=== PATIENT | male | born 1980 | race American Indian/Alaskan Native ===

== ENCOUNTER 2020-12-27 15:46 | Emergency (ER) | payer SELFPAY ==
[2020-12-27 15:50] VITALS: BP 140/93
[2020-12-27] MEDS ORDERED: oxyCODONE /ACETAMINOPHEN 5-325MG TAB PO ONE (16:02)
[2020-12-27] MEDS ORDERED: DIPHtheria,PERTUSSIS(ACELL),TETANUS VACCINE/PF 0.5 ML VIAL IM ONE (16:02)
[2020-12-27] MEDS ORDERED: NEOMY 3.5 MG/BACIT 400 UNITS/POLY B 5000 UNITS/GM OINT PACKET TP ONE (16:42)
--- NOTE | 2020-12-27 16:42 | Emergency Department Report ---
- General Chief Complaint: Wound/Laceration Stated Complaint: LEFT FINGER LAC/WORK RELATED Time Seen by Provider: 12/27/20 16:02 Source: patient Mode of arrival: Ambulatory Limitations: No Limitations - History of Present Illness Initial Comments: pt is a 40 yo male who presents to the ED with c/o a laceration to the left middle finger and pointer finger that occurred just [employer]. 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 he denies any numbness or weakness. he is able to move the digits. no pmhx. no allergies to meds. unsure of last tetanus immunizations. - Related Data Previous Rx's Medication Instructions Recorded Last Taken Type HYDROcodone/APAP 5-325 [Marion 1 each PO Q6HR PRN #12 tablet 12/27/20 Unknown Rx 5/325] Ibuprofen [Motrin 600 MG tab] 600 mg PO Q8H PRN #20 tablet 12/27/20 Unknown Rx Neomycin/Bacitracin/Polymyxinb 1 applicatio TP BID #14 oint...g. 12/27/20 Unknown Rx [Triple Antibiotic Ointment] cephALEXin [Keflex] 500 mg PO QID 7 Days #28 cap 12/27/20 Unknown Rx Allergies Allergy/AdvReac Type Severity Reaction Status Date / Time No Known Allergies Allergy Unverified 12/27/20 15:46 ED Review of Systems ROS: Stated complaint: LEFT FINGER LAC/WORK RELATED Other details as noted in HPI Comment: All other systems reviewed and negative ED Past Medical Hx - Past Medical History Previous Medical History?: No - Surgical History Past Surgical History?: No - Social History Smoking Status: Current Every Day Smoker Substance Use Type: Alcohol, Marijuana - Medications Home Medications: Home Medications Medication Instructions Recorded Confirmed Last Taken Type HYDROcodone/APAP 5-325 [Marion 1 each PO Q6HR PRN #12 tablet 12/27/20 Unknown Rx 5/325] Ibuprofen [Motrin 600 MG tab] 600 mg PO Q8H PRN #20 tablet 12/27/20 Unknown Rx Neomycin/Bacitracin/Polymyxinb 1 applicatio TP BID #14 oint...g. 12/27/20 Unknown Rx [Triple Antibiotic Ointment] cephALEXin [Keflex] 500 mg PO QID 7 Days #28 cap 12/27/20 Unknown Rx ED Physical Exam - General Limitations: No Limitations General appearance: alert, in no apparent distress - Head Head exam: Present: atraumatic, normocephalic - Eye Eye exam: Present: normal appearance - ENT ENT exam: Absent: mucous membranes moist - Respiratory Respiratory exam: Absent: respiratory distress, accessory muscle use - Extremities Exam Extremities exam: Present: other (1 cm diagonal laceration present to the distal end of the left middle and left pointer finger, involves part of the nail, no nailbed invovlement, FROM of the left wrist, hand, digits, neurovascularly intact, there is a slow flow of blood present to the avulsion bilaterally) - Neurological Exam Neurological exam: Present: alert, oriented X3 - Psychiatric Psychiatric exam: Present: normal affect, normal mood - Skin Skin exam: Present: warm, dry ED Course Vital Signs 12/27/20 12/27/20 15:47 20:05 Temperature 98.4 F Pulse Rate 79 61 Respiratory 18 15 Rate Blood Pressure 140/93 O2 Sat by Pulse 99 99 Oximetry ED Medical Decision Making - Radiology Data Radiology results: report reviewed Ordering Physician: CHITRA PURDY Date of Service: 12/27/20 Procedure(s): XR hand 3+V LT Accession Number(s): [id number] cc: CHITRA PURDY Fluoro Time In Minutes: LEFT HAND 3 VIEW(S) INDICATION / CLINICAL INFORMATION: MAIN hand pain COMPARISON: None available. FINDINGS: BONES / JOINT(S): No acute fracture or subluxation. No significant arthritis. SOFT TISSUES: Soft tissue lacerations with significant soft tissue swelling and edema noted at the tips of the left index and middle finger. ADDITIONAL FINDINGS: None. Signer Name: Angeles Dowling MD Signed: 12/27/2020 4:30 PM Workstation Name: [id number] Transcribed By: Dictated By: ANGELES DOWLING Electronically Authenticated By: ANGELES DOWLING Signed Date/Time: 12/27/20 1630 DD/ 28 TD/TT: - Medical Decision Making pt is a 40 yo male who presents to the ED with c/o a laceration to the left middle finger and pointer finger that occurred just [employer]. 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 he denies any numbness or weakness. he is able to move the digits. no pmhx. no allergies to meds. unsure of last tetanus immunizations. VSS. on exam: 1 cm diagonal laceration present to the distal end of the left middle and left pointer finger, involves part of the nail, no nailbed invovlement, FROM of the left wrist, hand, digits, neurovascularly intact, there is a slow flow of blood present to the avulsion bilaterally. XR left hand: BONES / JOINT(S): No acute fracture or subluxation. No significant arthritis. SOFT TISSUES: Soft tissue lacerations with significant soft tissue swelling and edema noted at the tips of the left index and middle finger. ADDITIONAL FINDINGS: None. irrigated with saline and scrubbed with betadine, small amount of surgicel placed and bleeding resolved. dressing and antibiotic ointment placed by nurse. given prescription keflex, norco, ibuprofen, triple abx ointment. advised pt Please use medication as prescribed. Please follow-up with primary care doctor for reexamination. Please clean area with antibacterial soap and water twice a day and pat dry and placed antibiotic ointment. Return to emergency room for any worsening symptoms. No hot tub, no pool, no soaking in water. Showering is fine. Critical care attestation.: If time is entered above; I have spent that time in minutes in the direct care of this critically ill patient, excluding procedure time. ED Disposition Clinical Impression: Avulsion of fingers Qualifiers: Encounter type: initial encounter Qualified Code(s): S61.209A - Unspecified open wound of unspecified finger without damage to nail, initial encounter Disposition: DC-01 TO HOME OR SELFCARE Is pt being admited?: No Does the pt Need Aspirin: No Condition: Stable Instructions: Deep Skin Avulsion Additional Instructions: Please use medication as prescribed. Please follow-up with primary care doctor for reexamination. Please clean area with antibacterial soap and water twice a day and pat dry and placed antibiotic ointment. Return to emergency room for any worsening symptoms. No hot tub, no pool, no soaking in water. Showering is fine. Prescriptions: cephALEXin [Keflex] 500 mg PO QID 7 Days #28 cap Ibuprofen [Motrin 600 MG tab] 600 mg PO Q8H PRN #20 tablet PRN Reason: Pain, Moderate (4-6) HYDROcodone/APAP 5-325 [Marion 5/325] 1 each PO Q6HR PRN #12 tablet PRN Reason: Pain , Severe (7-10) Neomycin/Bacitracin/Polymyxinb [Triple Antibiotic Ointment] 1 applicatio TP BID #14 oint...g. Referrals: JOANN ESTRADA MD [Staff Physician] - 3-5 Days [facility] [Provider Group] - 3-5 Days Forms: Accompanied Note, Work/School Release Form(ED) Time of Disposition: 17:44 Print Language: GERMAN
== END 2020-12-27 20:05 | disposition home or self-care (01) ==
LOC: ED 15:46
DX: S56.193A Other injury of flexor muscle, fascia and tendon of right middle finger at forearm level, initial encounter (principal); F17.200 Nicotine dependence, unspecified, uncomplicated; F12.10 Cannabis abuse, uncomplicated; Z79.899 Other long term (current) drug therapy; W26.8XXA Contact with other sharp object(s), not elsewhere classified, initial encounter; Y93.89 Activity, other specified; Y92.89 Other specified places as the place of occurrence of the external cause; Y99.8 Other external cause status
CPT/HCPCS: 73130; 90471; 90715; 99283; A6250